=== PATIENT | male | born 1955 | race African-American/Black ===

== ENCOUNTER 2016-05-26 09:32 | Inpatient (IN) | payer MEDICAID, OTHER ==
[~2016-05-26] VITALS: Ht 167.6 cm; Wt 91.2 kg
[~2016-05-26 09:32] MED LIST: CLON.5 PO; CLOZ100 PO; DIVA250T60 PO
[2016-05-26] MEDS ORDERED: AMLO-512 PO (11:15)
[2016-05-26] MEDS ORDERED: LISI-660 PO (11:15)
[2016-05-26] MEDS ORDERED: HALO10 PO (11:15)
[2016-05-26] MEDS ORDERED: ATOR10TA84 PO (11:15)
[2016-05-26] MEDS ORDERED: OXCA300T PO (11:15)
[2016-05-26] MEDS ORDERED: ARIP5TAB9 PO (11:15)
[2016-05-26] MEDS ORDERED: ACET500C4 PO (11:15)
[2016-05-26] MEDS ORDERED: HALOPERIDOL LACTATE 5 MG/ML VIAL IM ONE (13:30)
[2016-05-26] MEDS ORDERED: DiphenhydrAMINE HCL 50 MG/ML VIAL IM ONE (13:30)
[2016-05-26] MEDS ORDERED: LORazepam 2 MG/ML VIAL IM ONE (13:30)
[2016-05-26 14:06] LABS: BASOPHILS % (AUTO) 1.1 % (0.0-2.0); EOSINOPHILS % (AUTO) 0.4 % (1.0-6.0); HEMATOCRIT 42.1 % (41-53); HEMOGLOBIN 13.5 g/dL (13.5-17.5); LYMPHOCYTES # (AUTO) 1.5 K/uL (1.0-4.8); LYMPHOCYTES % (AUTO) 15.1 % (22.0-44.0); MEAN CORPUSCULAR HEMOGLOBIN 28.2 pg (26.0-34.0); MEAN CORPUSCULAR HGB CONC 32.1 G/dL (31.0-37.0); MEAN CORPUSCULAR VOLUME 88 fL (80-100); MONOCYTES # (AUTO) 0.5 K/uL (0.1-1.0); MONOCYTES % (AUTO) 5.2 % (2.0-9.0); NEUTROPHILS # (AUTO) 7.8 K/uL (1.8-7.7); NEUTROPHILS % (AUTO) 78.2 % (40.0-70.0); PLATELET COUNT (AUTO) 186 K/uL (150-450); RED BLOOD CELL COUNT(AUTO) 4.79 MIL/uL (4.50-5.90); RED CELL DISTRIBUTION WIDTH 14.4 % (11.5-14.5)
[2016-05-26 14:13] LABS: ANION GAP 8 mmol/L (8-16); CALCIUM, TOTAL 8.7 mg/dL (8.8-10.5); CARBON DIOXIDE 29 mmol/L (22-29); CHLORIDE 103 mmol/L (98-107); GLOMERULAR FILTR. RATE CALC > 60 mL/min (>60); POTASSIUM 3.3 mmol/L (3.5-5.1); SODIUM SERUM 140 mmol/L (136-145); UREA NITROGEN, BLOOD 11 mg/dL (7-18)
[2016-05-26 14:19] LABS: ALANINE AMINOTRANSFERASE 34 U/L (12-78); ASPARTATE AMINOTRANSFERASE 22 U/L (15-37); BILIRUBIN,TOTAL 0.4 mg/dL (0.1-1.0); TOTAL PROTEIN, SERUM 7.2 g/dL (6.4-8.2); VALPROIC ACID 6 mcg/mL (50-100)
[2016-05-26] MEDS ORDERED: POTASSIUM CHLORIDE 20 MEQ ER TABLET PO ONE (20:15)
[2016-05-26 20:58] VITALS: BP 134/83
[2016-05-26] MEDS ORDERED: LISINOPRIL 20 MG TABLET PO ONE (22:30)
[2016-05-27] MEDS ORDERED: LISINOPRIL 5 MG TABLET PO SCH (09:00)
[2016-05-27] MEDS: AmLODIPine BESYLATE 10 MG TABLET PO SCH (09:00)
[2016-05-27] MEDS: BENZTROPINE MESYLATE 0.5 MG TABLET PO SCH ×3 (09:00→17:23)
[2016-05-27] MEDS: HALOPERIDOL 5 MG TABLET PO SCH ×2 (09:00→17:00)
[2016-05-27] MEDS ORDERED: ATORVASTATIN CALCIUM 10 MG TABLET PO SCH (09:00)
[2016-05-27] MEDS: LISINOPRIL 20 MG TABLET PO SCH (09:00)
[2016-05-27] MEDS: LORazepam 2 MG TABLET PO PRN (15:53)
[2016-05-27] MEDS: HALOPERIDOL 5 MG TABLET PO PRN (15:53)
[2016-05-27] MEDS ORDERED: DiphenhydrAMINE HCL 50 MG/ML VIAL IM ONE (16:00)
[2016-05-27] MEDS ORDERED: HALOPERIDOL LACTATE 5 MG/ML VIAL IM ONE (16:00)
[2016-05-27] MEDS ORDERED: LORazepam 2 MG/ML VIAL IM ONE (16:00)
[2016-05-27 21:10] VITALS: BP 125/76
[2016-05-28] MEDS ORDERED: INFLUENZA VIRUS VACCINE QVS 2016-17 (3YR+)/PF 60 MCG/0.5 ML SYRINGE IM ONE (02:00)
[2016-05-28] MEDS: AmLODIPine BESYLATE 10 MG TABLET PO SCH (09:00)
[2016-05-28] MEDS: LISINOPRIL 20 MG TABLET PO SCH (09:00)
[2016-05-28] MEDS ORDERED: DiphenhydrAMINE HCL 50 MG/ML VIAL IM ONE (09:15)
[2016-05-28] MEDS ORDERED: HALOPERIDOL LACTATE 5 MG/ML VIAL IM ONE (09:15)
[2016-05-28] MEDS ORDERED: LORazepam 2 MG/ML VIAL IM ONE (09:15)
[2016-05-28 11:06] LABS: GLUCOSE,POINT OF CARE 110 MG/DL (70-110)
[2016-05-28] MEDS: BENZTROPINE MESYLATE 0.5 MG TABLET PO SCH ×2 (14:40→17:00)
[2016-05-28] MEDS: LORazepam 2 MG TABLET PO PRN (14:41)
[2016-05-28] MEDS: HALOPERIDOL 5 MG TABLET PO SCH ×2 (14:41→17:00)
[2016-05-28] MEDS ORDERED: DIVA500T52 PO (14:51)
[2016-05-28] MEDS ORDERED: ACET-2247 PO (14:51)
[2016-05-28 16:30] VITALS: BP 131/82
[2016-05-28] MEDS: LORazepam 2 MG/ML VIAL IM PRN (17:41)
[2016-05-28] MEDS: HALOPERIDOL LACTATE 5 MG/ML VIAL IM PRN (17:41)
[2016-05-29] MEDS: HALOPERIDOL 5 MG TABLET PO SCH ×2 (08:31→18:21)
[2016-05-29] MEDS: AmLODIPine BESYLATE 10 MG TABLET PO SCH (08:32)
[2016-05-29] MEDS: BENZTROPINE MESYLATE 0.5 MG TABLET PO SCH ×2 (08:32→18:21)
[2016-05-29] MEDS: LISINOPRIL 20 MG TABLET PO SCH (08:32)
[2016-05-29] MEDS: LORazepam 2 MG TABLET PO PRN (08:33)
[2016-05-29 08:53] LABS: CHOL/HDL RATIO 3.4 (4.2-7.3); POTASSIUM 4.1 mmol/L (3.5-5.1)
[2016-05-29] MEDS ORDERED: VALPROIC ACID 250 MG/5 ML SYRUP UDCUP PO SCH (09:00)
[2016-05-29] MEDS ORDERED: HALOPERIDOL DECANOATE 50 MG/ML AMP IM SCH (09:00)
[2016-05-29 11:15] LABS: THYROID STIMULATING HORMONE 0.99 uIU/mL (0.36-3.74)
[2016-05-29] MEDS: VALPROIC ACID 250 MG/5 ML SYRUP UDCUP PO SCH (18:21)
[2016-05-30] MEDS: ZOLPIDEM TARTRATE 10 MG TABLET PO PRN
[2016-05-30] MEDS: HALOPERIDOL LACTATE 5 MG/ML VIAL IM PRN ×2 (08:19→17:52)
[2016-05-30] MEDS: LORazepam 2 MG/ML VIAL IM PRN ×2 (08:19→17:52)
[2016-05-30] MEDS: HALOPERIDOL 5 MG TABLET PO SCH ×2 (08:20→17:00)
[2016-05-30] MEDS: LORazepam 2 MG TABLET PO PRN (10:21)
[2016-05-30] MEDS: VALPROIC ACID 250 MG/5 ML SYRUP UDCUP PO SCH ×2 (10:21→17:00)
[2016-05-30] MEDS: CHOLECALCIFEROL (VIT D3) 1,000 UNITS TABLET PO SCH (10:22)
[2016-05-30] MEDS: LISINOPRIL 20 MG TABLET PO SCH (10:22)
[2016-05-30] MEDS: HALOPERIDOL 5 MG TABLET PO PRN ×2 (10:22)
[2016-05-30] MEDS: AmLODIPine BESYLATE 10 MG TABLET PO SCH (10:22)
[2016-05-30] MEDS: BENZTROPINE MESYLATE 0.5 MG TABLET PO SCH ×2 (10:22→17:00)
[2016-05-31] MEDS: LORazepam 2 MG TABLET PO PRN ×2 (07:19→13:33)
[2016-05-31] MEDS: AmLODIPine BESYLATE 10 MG TABLET PO SCH (07:19)
[2016-05-31] MEDS: HALOPERIDOL 10 MG TABLET PO SCH ×2 (07:19→16:44)
[2016-05-31] MEDS: BENZTROPINE MESYLATE 0.5 MG TABLET PO SCH ×2 (07:19→16:44)
[2016-05-31] MEDS: CHOLECALCIFEROL (VIT D3) 1,000 UNITS TABLET PO SCH (07:19)
[2016-05-31] MEDS: LISINOPRIL 20 MG TABLET PO SCH (07:20)
[2016-05-31 07:31] LABS: BASOPHILS # (AUTO) 0.03 K/uL (0.00-0.20); BASOPHILS % (AUTO) 0.4 % (0.0-2.0); EOSINOPHILS # (AUTO) 0.01 K/uL (0.00-0.70); EOSINOPHILS % (AUTO) 0.11 % (1.0-6.0); HEMOGLOBIN 13.4 g/dL (13.5-17.5); LYMPHOCYTES # (AUTO) 2.4 K/uL (1.0-4.8); MEAN CORPUSCULAR HEMOGLOBIN 28.6 pg (26.0-34.0); MEAN CORPUSCULAR HGB CONC 32.7 G/dL (31.0-37.0); MEAN CORPUSCULAR VOLUME 88 fL (80-100); MONOCYTES # (AUTO) 0.7 K/uL (0.1-1.0); MONOCYTES % (AUTO) 7.9 % (2.0-9.0); NEUTROPHILS # (AUTO) 5.2 K/uL (1.8-7.7); NEUTROPHILS % (AUTO) 62.6 % (40.0-70.0); PLATELET COUNT (AUTO) 197 K/uL (150-450); RED BLOOD CELL COUNT(AUTO) 4.69 MIL/uL (4.50-5.90); RED CELL DISTRIBUTION WIDTH 13.9 % (11.5-14.5); WHITE BLOOD COUNT (AUTO) 8.3 K/uL (4.5-11.0)
[2016-05-31 07:39] LABS: ANION GAP 6 mmol/L (8-16); CALCIUM, TOTAL 8.9 mg/dL (8.8-10.5); CARBON DIOXIDE 29 mmol/L (22-29); CHLORIDE 108 mmol/L (98-107); CREATININE 0.82 mg/dL (0.60-1.30); GLOMERULAR FILTR. RATE CALC > 60 mL/min (>60); POTASSIUM 4.5 mmol/L (3.5-5.1); SODIUM SERUM 143 mmol/L (136-145); UREA NITROGEN, BLOOD 18 mg/dL (7-18); VALPROIC ACID 26 mcg/mL (50-100)
[2016-05-31] MEDS ORDERED: VALPROIC ACID 250 MG/5 ML SYRUP UDCUP PO SCH (09:00)
[2016-05-31] MEDS: HALOPERIDOL 5 MG TABLET PO PRN (13:33)
[2016-05-31 18:11] VITALS: BP 105/56
[2016-05-31] MEDS: DIVALPROEX SODIUM 500 MG ER TABLET PO SCH (18:11)
[2016-06-01] MEDS: CHOLECALCIFEROL (VIT D3) 1,000 UNITS TABLET PO SCH (08:22)
[2016-06-01] MEDS: AmLODIPine BESYLATE 10 MG TABLET PO SCH (08:23)
[2016-06-01] MEDS: HALOPERIDOL 10 MG TABLET PO SCH ×2 (08:23→17:40)
[2016-06-01] MEDS: BENZTROPINE MESYLATE 0.5 MG TABLET PO SCH ×2 (08:23→17:40)
[2016-06-01] MEDS: LISINOPRIL 20 MG TABLET PO SCH (08:23)
[2016-06-01] MEDS: DIVALPROEX SODIUM 500 MG ER TABLET PO SCH ×2 (08:23→17:38)
[2016-06-01] MEDS: HALOPERIDOL 5 MG TABLET PO PRN ×2 (08:25→13:04)
[2016-06-01] MEDS: LORazepam 2 MG TABLET PO PRN ×2 (08:25→13:04)
[2016-06-01 08:30] VITALS: BP 122/77
[2016-06-01 18:05] VITALS: BP 126/93
[2016-06-02] MEDS: ZOLPIDEM TARTRATE 10 MG TABLET PO PRN (01:45)
[2016-06-02] MEDS: LORazepam 2 MG TABLET PO PRN ×3 (01:47→11:55)
[2016-06-02 04:59] VITALS: BP 120/79
[2016-06-02] MEDS: AmLODIPine BESYLATE 10 MG TABLET PO SCH (08:50)
[2016-06-02] MEDS: HALOPERIDOL 10 MG TABLET PO SCH ×2 (08:50→16:35)
[2016-06-02] MEDS: LISINOPRIL 20 MG TABLET PO SCH (08:50)
[2016-06-02] MEDS: CHOLECALCIFEROL (VIT D3) 1,000 UNITS TABLET PO SCH (08:50)
[2016-06-02] MEDS: BENZTROPINE MESYLATE 0.5 MG TABLET PO SCH ×2 (08:51→16:35)
[2016-06-02] MEDS: DIVALPROEX SODIUM 250 MG ER TABLET PO SCH ×2 (08:51→16:34)
[2016-06-02 09:21] VITALS: BP 108/82
[2016-06-02 21:51] VITALS: BP 129/62
[2016-06-03 03:55] VITALS: BP 108/62
[2016-06-03 09:00] VITALS: BP 115/65
[2016-06-03] MEDS: HALOPERIDOL 10 MG TABLET PO SCH ×2 (09:08→16:22)
[2016-06-03] MEDS: CHOLECALCIFEROL (VIT D3) 1,000 UNITS TABLET PO SCH (09:08)
[2016-06-03] MEDS: AmLODIPine BESYLATE 10 MG TABLET PO SCH (09:08)
[2016-06-03] MEDS: LISINOPRIL 20 MG TABLET PO SCH (09:08)
[2016-06-03] MEDS: BENZTROPINE MESYLATE 0.5 MG TABLET PO SCH ×2 (09:09→16:21)
[2016-06-03] MEDS: DIVALPROEX SODIUM 250 MG ER TABLET PO SCH ×2 (09:11→16:21)
[2016-06-03 16:22] VITALS: BP 123/76
[2016-06-03] MEDS: HALOPERIDOL LACTATE 5 MG/ML VIAL IM PRN (16:22)
[2016-06-03] MEDS: ZOLPIDEM TARTRATE 10 MG TABLET PO PRN (20:40)
[2016-06-04] MEDS: LORazepam 2 MG TABLET PO PRN ×2 (03:04→11:10)
[2016-06-04] MEDS: HALOPERIDOL 5 MG TABLET PO PRN (03:28)
[2016-06-04 08:18] VITALS: BP 123/78
[2016-06-04] MEDS ORDERED: HALOD50I IM (10:57)
[2016-06-04] MEDS ORDERED: BENZ0.5T6 PO (10:57)
[2016-06-04] MEDS ORDERED: DIVA250T45 PO (10:57)
[2016-06-04] MEDS ORDERED: LISI-662 PO (11:06)
[2016-06-04] MEDS ORDERED: VITAD1000 PO (11:06)
[2016-06-04] MEDS: BENZTROPINE MESYLATE 0.5 MG TABLET PO SCH (11:09)
[2016-06-04] MEDS: DIVALPROEX SODIUM 250 MG ER TABLET PO SCH (11:10)
[2016-06-04] MEDS: LISINOPRIL 20 MG TABLET PO SCH (11:10)
[2016-06-04] MEDS: HALOPERIDOL 10 MG TABLET PO SCH (11:10)
[2016-06-04] MEDS: AmLODIPine BESYLATE 10 MG TABLET PO SCH (11:10)
[2016-06-04] MEDS: CHOLECALCIFEROL (VIT D3) 1,000 UNITS TABLET PO SCH (11:10)
== END 2016-06-04 14:31 | DRG 751 ==
LOC: EDUNIT# 09:32 → EMS 09:34 → 3EC 20:00
PROVIDERS: ADMIT Psychiatry & Neurology Psychiatry; ATTEND Psychiatry & Neurology Psychiatry
DX: F29 Unspecified psychosis not due to a substance or known physiological condition (principal); F03.90 Unspecified dementia, unspecified severity, without behavioral disturbance, psychotic disturbance, mood disturbance, and anxiety; F20.0 Paranoid schizophrenia; F32.9 Major depressive disorder, single episode, unspecified; I10 Essential (primary) hypertension; E66.9 Obesity, unspecified; E87.6 Hypokalemia; E83.51 Hypocalcemia; E78.5 Hyperlipidemia, unspecified; Z72.89 Other problems related to lifestyle; Z71.41 Alcohol abuse counseling and surveillance of alcoholic; Z88.8 Allergy status to other drugs, medicaments and biological substances; Z78.1 Physical restraint status; Z79.899 Other long term (current) drug therapy; Z91.14 Patient's other noncompliance with medication regimen; Z68.32 Body mass index [BMI] 32.0-32.9, adult; Z28.21 Immunization not carried out because of patient refusal
CPT/HCPCS: 82306; 82962; 84132; 84443; 87081; 96372; 99291; G0480; J1200; J1630; J1631; J2060

== ENCOUNTER 2016-06-05 15:54 | Inpatient (IN) | payer MEDICAID, OTHER ==
[~2016-06-05] VITALS: Ht 172.7 cm; Wt 91.9 kg
[~2016-06-05 15:54] MED LIST changes: +AMLO-512 PO; +BENZ0.5T6 PO; -CLON.5 PO; -CLOZ100 PO; +DIVA250T45 PO; -DIVA250T60 PO; +HALO10 PO; +HALOD50I IM; +LISI-662 PO; +VITAD1000 PO
[2016-06-05] MEDS ORDERED: HALOPERIDOL LACTATE 5 MG/ML VIAL IM ONE ×2 (16:30→23:30)
[2016-06-05] MEDS ORDERED: LORazepam 2 MG/ML VIAL IM ONE ×2 (16:30→23:30)
[2016-06-05] MEDS ORDERED: DiphenhydrAMINE HCL 50 MG/ML VIAL IM ONE ×2 (16:30→23:30)
[2016-06-05 16:48] LABS: ANION GAP 10 mmol/L (8-16); CALCIUM, TOTAL 8.8 mg/dL (8.8-10.5); CARBON DIOXIDE 29 mmol/L (22-29); CHLORIDE 104 mmol/L (98-107); CREATININE 0.76 mg/dL (0.60-1.30); GLOMERULAR FILTR. RATE CALC > 60 mL/min (>60); POTASSIUM 3.7 mmol/L (3.5-5.1); SODIUM SERUM 143 mmol/L (136-145); UREA NITROGEN, BLOOD 9 mg/dL (7-18)
[2016-06-05 16:53] LABS: ALANINE AMINOTRANSFERASE 36 U/L (12-78); ALBUMIN 3.9 g/dL (3.4-5.0); ASPARTATE AMINOTRANSFERASE 17 U/L (15-37); BILIRUBIN,TOTAL 0.2 mg/dL (0.1-1.0); TOTAL PROTEIN, SERUM 7.3 g/dL (6.4-8.2)
[2016-06-05 17:00] LABS: BASOPHILS % (AUTO) 0.3 % (0.0-2.0); EOSINOPHILS % (AUTO) 0.1 % (1.0-6.0); HEMATOCRIT 41.7 % (41-53); HEMOGLOBIN 13.5 g/dL (13.5-17.5); LYMPHOCYTES # (AUTO) 1.6 K/uL (1.0-4.8); LYMPHOCYTES % (AUTO) 17.7 % (22.0-44.0); MEAN CORPUSCULAR HEMOGLOBIN 28.3 pg (26.0-34.0); MEAN CORPUSCULAR HGB CONC 32.4 G/dL (31.0-37.0); MEAN CORPUSCULAR VOLUME 87 fL (80-100); MONOCYTES # (AUTO) 0.8 K/uL (0.1-1.0); MONOCYTES % (AUTO) 8.8 % (2.0-9.0); NEUTROPHILS # (AUTO) 6.5 K/uL (1.8-7.7); NEUTROPHILS % (AUTO) 73.1 % (40.0-70.0); PLATELET COUNT (AUTO) 197 K/uL (150-450); RED BLOOD CELL COUNT(AUTO) 4.77 MIL/uL (4.50-5.90); RED CELL DISTRIBUTION WIDTH 14.3 % (11.5-14.5); WHITE BLOOD COUNT (AUTO) 8.9 K/uL (4.5-11.0)
[2016-06-05] MEDS ORDERED: ZOLPIDEM TARTRATE 10 MG TABLET PO PRN (17:45)
[2016-06-05] MEDS: BENZTROPINE MESYLATE 0.5 MG TABLET PO SCH (20:36)
[2016-06-05] MEDS: HALOPERIDOL 10 MG TABLET PO SCH (20:36)
[2016-06-05] MEDS: DIVALPROEX SODIUM 250 MG ER TABLET PO SCH (20:36)
[2016-06-05] MEDS: OLANZapine 7.5 MG TABLET PO SCH (21:00)
[2016-06-06] MEDS ORDERED: BACITRACIN 28.4 GM OINTMENT TP PRN (08:00)
[2016-06-06] MEDS ORDERED: PETROLATUM,WHITE 71 GM JELLY TP PRN (08:00)
[2016-06-06] MEDS ORDERED: ACETAMINOPHEN 325 MG TABLET PO PRN (08:00)
[2016-06-06] MEDS ORDERED: IBUPROFEN 600 MG TABLET PO PRN (08:00)
[2016-06-06] MEDS ORDERED: CloNIDine HCL 0.1 MG TABLET PO PRN (08:00)
[2016-06-06] MEDS ORDERED: BENZOCAINE/MENTHOL LOZENGE [8 LOZENGES/PACKET] MM PRN (08:00)
[2016-06-06] MEDS ORDERED: LOPERAMIDE HCL 2 MG CAPSULE PO PRN (08:00)
[2016-06-06] MEDS ORDERED: MAGNESIUM HYDROXIDE SUSPENSION 30 ML UDCUP PO PRN (08:00)
[2016-06-06] MEDS ORDERED: MAG HYDROX/AL HYDROX/SIMETH ES 30 ML SUSPENSION UDCUP PO PRN (08:00)
[2016-06-06] MEDS ORDERED: ONDANSETRON HCL 4 MG TABLET PO PRN (08:00)
[2016-06-06] MEDS ORDERED: ALBUTEROL SULFATE HFA 90 MCG/PUFF 8 GM INHALER IH PRN (08:00)
[2016-06-06] MEDS: BENZTROPINE MESYLATE 0.5 MG TABLET PO SCH ×2 (08:50→17:37)
[2016-06-06] MEDS: DIVALPROEX SODIUM 250 MG ER TABLET PO SCH ×2 (08:50→17:38)
[2016-06-06] MEDS: HALOPERIDOL 10 MG TABLET PO SCH ×2 (08:52→17:38)
[2016-06-06] MEDS: CHOLECALCIFEROL (VIT D3) 1,000 UNITS TABLET PO SCH (08:52)
[2016-06-06] MEDS: LORazepam 2 MG TABLET PO PRN ×2 (08:52→17:38)
[2016-06-06 09:01] VITALS: BP 143/96
[2016-06-06 17:08] VITALS: BP 116/79
[2016-06-06] MEDS: OLANZapine 7.5 MG TABLET PO SCH (20:43)
[2016-06-07] MEDS ORDERED: PNEUMOCOCCAL VACCINE POLYVALENT 0.5 ML VIAL [PPSV23] IM ONE (04:15)
[2016-06-07] MEDS ORDERED: INFLUENZA VIRUS VACCINE QVS 2016-17 (3YR+)/PF 60 MCG/0.5 ML SYRINGE IM ONE (04:15)
[2016-06-07] MEDS: DIVALPROEX SODIUM 250 MG ER TABLET PO SCH ×2 (08:02→16:36)
[2016-06-07] MEDS: BENZTROPINE MESYLATE 0.5 MG TABLET PO SCH ×2 (08:03→16:35)
[2016-06-07] MEDS: CHOLECALCIFEROL (VIT D3) 1,000 UNITS TABLET PO SCH (08:03)
[2016-06-07] MEDS: HALOPERIDOL 10 MG TABLET PO SCH ×2 (08:03→16:35)
[2016-06-07] MEDS: LORazepam 2 MG TABLET PO PRN ×3 (08:04→17:32)
[2016-06-07 08:09] VITALS: BP 134/78
[2016-06-07] MEDS: HALOPERIDOL 5 MG TABLET PO PRN (12:09)
[2016-06-07 16:07] VITALS: BP 150/83
[2016-06-07] MEDS: OLANZapine 7.5 MG TABLET PO SCH (20:04)
[2016-06-08] MEDS: CHOLECALCIFEROL (VIT D3) 1,000 UNITS TABLET PO SCH (08:15)
[2016-06-08] MEDS: HALOPERIDOL 10 MG TABLET PO SCH ×2 (08:15→18:24)
[2016-06-08] MEDS: LORazepam 2 MG TABLET PO PRN ×2 (08:15→18:24)
[2016-06-08] MEDS: BENZTROPINE MESYLATE 0.5 MG TABLET PO SCH ×2 (08:15→18:25)
[2016-06-08] MEDS: DIVALPROEX SODIUM 250 MG ER TABLET PO SCH ×2 (08:16→18:25)
[2016-06-08 08:37] VITALS: BP 112/71
[2016-06-08 18:22] VITALS: BP 132/73
[2016-06-08] MEDS ORDERED: HALOPERIDOL LACTATE 5 MG/ML VIAL IM PRN (19:45)
[2016-06-08] MEDS: OLANZapine 7.5 MG TABLET PO SCH (21:45)
[2016-06-09] MEDS: HALOPERIDOL 10 MG TABLET PO SCH ×2 (08:53→17:25)
[2016-06-09] MEDS: CHOLECALCIFEROL (VIT D3) 1,000 UNITS TABLET PO SCH (08:53)
[2016-06-09] MEDS: BENZTROPINE MESYLATE 0.5 MG TABLET PO SCH ×2 (08:53→17:25)
[2016-06-09] MEDS: LORazepam 2 MG TABLET PO PRN (08:53)
[2016-06-09] MEDS: DIVALPROEX SODIUM 250 MG ER TABLET PO SCH ×2 (08:54→17:25)
[2016-06-09 16:26] VITALS: BP 125/79
[2016-06-09] MEDS: OLANZapine 7.5 MG TABLET PO SCH (20:26)
[2016-06-10] MEDS: HALOPERIDOL 10 MG TABLET PO SCH ×2 (09:28→16:28)
[2016-06-10] MEDS: LORazepam 2 MG TABLET PO PRN (09:28)
[2016-06-10] MEDS: DIVALPROEX SODIUM 250 MG ER TABLET PO SCH ×2 (09:28→16:29)
[2016-06-10] MEDS: BENZTROPINE MESYLATE 0.5 MG TABLET PO SCH ×2 (09:28→16:28)
[2016-06-10] MEDS: CHOLECALCIFEROL (VIT D3) 1,000 UNITS TABLET PO SCH (09:28)
[2016-06-10 17:17] VITALS: BP 151/72
[2016-06-10] MEDS: OLANZapine 7.5 MG TABLET PO SCH (20:50)
[2016-06-11] MEDS ORDERED: OLANZapine 7.5 MG TABLET PO SCH (09:00)
[2016-06-11] MEDS ORDERED: OLAN7.5T2 PO (09:39)
[2016-06-11] MEDS: HALOPERIDOL 5 MG TABLET PO PRN (09:48)
[2016-06-11] MEDS: DIVALPROEX SODIUM 250 MG ER TABLET PO SCH (09:48)
[2016-06-11] MEDS: BENZTROPINE MESYLATE 0.5 MG TABLET PO SCH (09:48)
[2016-06-11] MEDS: CHOLECALCIFEROL (VIT D3) 1,000 UNITS TABLET PO SCH (09:50)
[2016-06-11] MEDS: HALOPERIDOL 10 MG TABLET PO SCH (09:53)
[2016-06-11] MEDS ORDERED: LISINOPRIL 20 MG TABLET PO SCH (10:30)
[2016-06-11] MEDS ORDERED: LISI-662 PO (10:33)
[2016-06-11 13:26] VITALS: BP 154/72
[2016-06-13] MEDS ORDERED: HALO5I IM (15:47)
== END 2016-06-11 14:25 | DRG 750 ==
LOC: EMS 15:56 → 3EC 20:25
PROVIDERS: ADMIT Psychiatry & Neurology Child & Adolescent Psychiatry; ATTEND Psychiatry & Neurology Child & Adolescent Psychiatry
DX: F20.0 Paranoid schizophrenia (principal); F03.90 Unspecified dementia, unspecified severity, without behavioral disturbance, psychotic disturbance, mood disturbance, and anxiety; E55.9 Vitamin D deficiency, unspecified; I10 Essential (primary) hypertension; E66.9 Obesity, unspecified; E78.5 Hyperlipidemia, unspecified; K59.00 Constipation, unspecified; J44.9 Chronic obstructive pulmonary disease, unspecified; F17.200 Nicotine dependence, unspecified, uncomplicated; Z71.6 Tobacco abuse counseling; Z68.30 Body mass index [BMI] 30.0-30.9, adult; Z91.14 Patient's other noncompliance with medication regimen; Z88.8 Allergy status to other drugs, medicaments and biological substances
CPT/HCPCS: 87081; 96372; 99285; G0480; J1200; J1630; J2060; J3535